=== PATIENT | male | born 1965 | race Caucasian/White ===

== ENCOUNTER → 2018-04-09 | Outpatient (CLI) | payer BC ==
[2018-04-09 11:51] LABS: Basophils # (A) 0.1 k/uL (0-0.2); Basophils % (A) 1 %; Eosinophils # (A) 0.2 k/uL (0-0.7); Eosinophils % (A) 3 %; HCT 45.2 % (39.0-53.0); HGB 15.5 gm/dL (13.0-17.5); Lymphocytes # (A) 1.9 k/uL (1.0-4.8); Lymphocytes % (A) 33 %; MCH 31.2 pg (25.0-35.0); MCHC 34.2 g/dL (31.0-37.0); MCV 91.2 fL (80.0-100.0); Mean Platelet Volume 7.7; Monocytes # (A) 0.3 k/uL (0-1.0); Monocytes % (A) 5 %; Neutrophils # (A) 3.2 k/uL (1.3-7.7); Neutrophils % (A) 56 %; Platelet Count 218 k/uL (150-450); RBC 4.96 m/uL (4.30-5.90); RDW 12.3 % (11.5-15.5); WBC 5.7 k/uL (3.8-10.6)
[2018-04-09 16:29] LABS: Albumin 4.5 g/dL (3.80-4.90); Albumin/Globulin Ratio 2.25 (1.20-2.10); Calcium 9.5 mg/dL (8.7-10.3); LDL Cholesterol,Calculated 127.6 mg/dL (0.0-131.0); Potassium 4.4 mmol/L (3.5-5.5); Total Bilirubin 0.7 mg/dL (0.3-1.2); Total Protein 6.5 g/dL (6.2-8.2); VLDL Calculation 25.4 mg/dL (5.00-40.00)
[2018-04-09 16:38] LABS: T4, Free (Free Thyroxine) 1.6 ng/dL (0.80-1.80)
[2018-04-09 17:18] LABS: Gliadin AB IgA, Unit 2.4 U/mL
[2018-04-09 17:46] LABS: Hemoglobin A1C 5.7 % (4.0-6.0)
== END | disposition home or self-care (01) ==
LOC: LABWHC1 11:16
PROVIDERS: ATTEND Internal Medicine Geriatric Medicine
DX: Z00.00 Encounter for general adult medical examination without abnormal findings (principal); R19.7 Diarrhea, unspecified
CPT/HCPCS: 36415; 80053; 80061; 83036; 83516; 84153; 84439; 84443; 85025

== ENCOUNTER → 2023-07-20 | Outpatient (CLI) | payer BC ==
--- NOTE | 2023-07-20 13:44 | XR ---
EXAMINATION TYPE: XR chest 2V DATE OF EXAM: 07/20/2023 1:21 PM CLINICAL INDICATION:Male, 58 years old with history of R06.02 SOB; [facility] COMPARISON: Chest radiographs from 10/24/2014. TECHNIQUE: XR chest 2V Frontal and lateral views of the chest. FINDINGS: Lungs/Pleura: The diaphragm is now elevated with blunting of the left costophrenic angle. There is no evidence of pleural effusion, focal consolidation, or pneumothorax. Pulmonary vascularity: Unremarkable. Heart/mediastinum: Cardiomediastinal silhouette is unremarkable. Musculoskeletal: No acute osseous pathology. IMPRESSION: New elevation of the left diaphragm with blunting of the left costophrenic angle suggesting pleural e ffusion. Further evaluation with CT may be of benefit if clinically warranted.
[2023-07-20 17:12] LABS: Basophils # (A) 0.04 X 10*3/uL (0.00-0.10); Basophils % (A) 0.3 %; Eosinophils % (A) 2.2 %; HGB 15.4 g/dL (13.0-17.0); Lymphocytes # (A) 3.12 X 10*3/uL (0.90-5.00); MCH 30.8 pg (27.0-32.0); MCHC 33.5 g/dL (32.0-37.0); Mean Platelet Volume 10.9 FL (9.5-12.2); Monocytes # (A) 1.26 X 10*3/uL (0.20-1.00); Monocytes % (A) 9.3 %; NRBC Per 100 WBC 0 X 10*3/uL (0.00-0.01); Neutrophils % (A) 63.6 %; Platelet Count 252 X 10*3/uL (140-440); RDW 13.1 % (11.5-14.5); WBC 13.54 X 10*3/uL (4.50-10.00)
[2023-07-20 17:38] LABS: ALT 37 U/L (10-49); AST 19 U/L (14-35); Albumin 4.5 g/dL (3.8-4.9); Albumin/Globulin Ratio 1.96 Ratio (1.60-3.17); Alkaline Phosphatase 63 U/L (41-126); BUN/Creat Ratio 21.56 Ratio (12.00-20.00); Blood Urea Nitrogen 19.4 mg/dL (9.0-27.0); Calcium 9.8 mg/dL (8.7-10.3); Chloride 102 mmol/L (96-109); Chol/HDL Ratio 2.49 Ratio; Globulin 2.3 g/dL (1.6-3.3); Glucose 91 mg/dL (70-110); LDL Cholesterol,Calculated 65.7 mg/dL (0.0-131.0); Potassium 4.2 mmol/L (3.5-5.5); Sodium 137 mmol/L (135-145); T4, Free (Free Thyroxine) 1.96 ng/dL (0.80-1.80); Total Bilirubin 0.5 mg/dL (0.3-1.2); Total Protein 6.8 g/dL (6.2-8.2)
== END | disposition home or self-care (01) ==
LOC: LABWHC1 12:44
PROVIDERS: ATTEND Internal Medicine Geriatric Medicine
DX: I26.99 Other pulmonary embolism without acute cor pulmonale (principal); E78.2 Mixed hyperlipidemia; E03.8 Other specified hypothyroidism; R73.9 Hyperglycemia, unspecified; R91.8 Other nonspecific abnormal finding of lung field
CPT/HCPCS: 36415; 71046; 80053; 80061; 83036; 84439; 84443; 85025; 85379

== ENCOUNTER → 2023-07-20 | Outpatient (CLI) | payer BC ==
--- NOTE | 2023-07-20 20:12 | CT ---
EXAMINATION TYPE: CT chest w con CT DLP: 694 mGycm, Automated exposure control for dose reduction was used. DATE OF EXAM: 07/20/2023 5:24 PM COMPARISON: Chest radiograph from same day. CLINICAL INDICATION:Male, 58 years old with history of J90 PLEURAL EFFUSION R06.02 SHORT OF BREATH; P HH, SOB X 3 weeks, Left periscapular pain, pleural effusion found on prior Chest XR. TECHNIQUE: Multiple axial images were obtained through the chest. Sagittal and coronal reformats were created for review. Contrast used:100 mL of Isovue 300 with IV Contrast (None if empty) Oral contrast used: (None if empty) FINDINGS: LUNGS/ PLEURA: There is an elevated left diaphragm compared to the right which is new from 10/24/2014. Atelectasis changes are seen along the diaphragm and in the left costophrenic angle which correlates with blunting on radiograph. AIRWAY: Patent and unremarkable. HEART: Size within normal limits. MEDIASTINUM: No gross evidence of adenopathy. No mediastinal masses are identified. VASCULATURE: No aortic aneurysm. No filling defect to suggest pulmonary embolus in the central pulmo nary vasculature.1 MUSCULOSKELETAL: No acute osseous abnormalities SOFT TISSUES/LYMPH NODES: No soft tissue masses seen within the lower neck. LOWER NECK: No significant findings. UPPER ABDOMEN: No significant findings. IMPRESSION: There is an elevated left diaphragm which correlates with a similar to same day chest art eriography finding. No evidence for pleural effusion. There is atelectasis within the left costophren ic angle correlating with same day blunting of the costophrenic angle on chest radiography. Given codey vated left diaphragm correlate for phrenic nerve injury with fluoroscopy sniff test. Finding is new f rom prior radiograph 10/24/2014. No mediastinal or lower neck mass visualized. Findings communicated to Dr. Alonzo Tadeo MD on 07/20/2023 8:[address] Ronak Boyce.
== END | disposition home or self-care (01) ==
LOC: RADCTMAIN 16:42
PROVIDERS: ATTEND Internal Medicine Geriatric Medicine
DX: J98.6 Disorders of diaphragm (principal); J98.11 Atelectasis; J90 Pleural effusion, not elsewhere classified; R06.02 Shortness of breath
CPT/HCPCS: 71260; Q9967

== ENCOUNTER → 2023-07-21 | Outpatient (CLI) | payer BC ==
--- NOTE | 2023-07-21 19:45 | CT ---
EXAMINATION TYPE: CT angio chest CT DLP: 433.3 mGycm, Automated exposure control for dose reduction was used. DATE OF EXAM: 07/21/2023 6:33 PM COMPARISON: 07/20/2023, 01/02/2014 CLINICAL INDICATION:Male, 58 years old with history of R06.02 SHORTNESS OF BREATH; SOB TECHNIQUE/CONTRAST: CTA scan of the thorax is performed with IV Contrast, patient injected with 80 mL of Isovue 370, MIP images are created and reviewed these are created on a separate workstation.. FINDINGS: Pulmonary Artery: There is no evidence for a filling defect within the pulmonary vasculature to sugge st acute pulmonary embolism. The pulmonary artery is of normal size. LUNGS/ PLEURA: There is an elevated left diaphragm compared to the right which is new from 10/24/2014. Atelectasis changes are seen along the diaphragm and in the left costophrenic angle which correlates with blunting on radiograph. Airway: Large airways are patent. Heart: Heart is within normal limits for size. Vasculature: No evidence of aortic aneurysm. Mediastinum: No gross evidence of adenopathy. Musculoskeletal: No acute osseous abnormalities Soft Tissues: Unremarkable. Lower neck: No significant findings. Upper Abdomen: No significant findings. IMPRESSION: 1. No evidence of pulmonary embolism. 2. Persistent findings of elevated left diaphragm. Correlate for phrenic nerve injury.
== END | disposition home or self-care (01) ==
LOC: RADCTMAIN 17:08
PROVIDERS: ATTEND Internal Medicine
DX: Q79.1 Other congenital malformations of diaphragm (principal)
CPT/HCPCS: 71275; Q9967

== ENCOUNTER → 2023-07-24 | Outpatient (CLI) | payer BC ==
--- NOTE | 2023-07-24 12:28 | FL ---
EXAMINATION TYPE: FL sniff test without CXR DATE OF EXAM: 07/24/2023 10:40 AM CLINICAL INDICATION:Male, 58 years old with history of J98.6 DISORDERS OF DIAPHRAGM; COMPARISON: Chest radiograph from 07/20/2023, 07/21/2023. TECHNIQUE: With the patient standing, fluoroscopy of the right and left hemidiaphragm was observed du ring normal resting respiration as well as deep inspiration, deep expiration, and "sniffing." Fluoroscopic time: 1 min Fluoroscopic images: 151 Radiographs taken: 5 DAP: None reported mGym2 FINDINGS: Hl7 Developer film demonstrates: no focal consolidation, pneumothorax, or pleural effusions. The cardiomedias tinal silhouette is within normal limits. There is elevation of the left hemidiaphragm. This is stab le and compared to previous chest radiograph. The left diaphragm contracts during inspiration. Both hemidiaphragms move together. Normal excursion is demonstrated of the left hemidiaphragm. The right diaphragm contracts during inspiration. Both hemidiaphragms move together. Normal excursion is demonstrated of the right hemidiaphragm. IMPRESSION: Normal sniff test.
== END | disposition home or self-care (01) ==
LOC: RADUSWWP 10:10
PROVIDERS: ATTEND Internal Medicine
DX: J98.6 Disorders of diaphragm (principal)
CPT/HCPCS: 76000